=== PATIENT | male | born 1950 | race Two or more races ===

== ENCOUNTER 2019-04-12 11:19 | Emergency (ER) | payer MEDICAID ==
[~2019-04-12] VITALS: Ht 172.7 cm; Wt 81.6 kg
[2019-04-12] VITALS (9 sets, daily range): BP systolic 114–126; BP diastolic 61–72
[2019-04-12] MEDS ORDERED: Tetanus/Diptheria/Pertussis IM ONE (11:30)
--- NOTE | 2019-04-12 11:59 | NUR ---
ED Nurse Note: pt's rabi states there is a change in pt's mental status Dr. Bryant wants pt moved to a monitor bed. pt moved from rx1 to bed 2.
--- NOTE | 2019-04-12 12:08 | NUR ---
ED Nurse Note: PT. WENT DOWN TO CT
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
[2019-04-12 12:25] LABS: HEMATOCRIT 42.3 % (42.0-52.0); HEMOGLOBIN 14.7 G/DL (14.2-18.0); MEAN CORPUSCULAR VOLUME 96 FL (80-99); PLATELET COUNT 197 K/UL (150-450); RED BLOOD COUNT 4.41 M/UL (4.70-6.10); RED CELL DISTRIBUTION WIDTH 11.1 % (11.6-14.8); WHITE BLOOD COUNT 14.1 K/UL (4.8-10.8)
[2019-04-12 12:32] LABS: ANION GAP 15 mmol/L (5-15); BLOOD UREA NITROGEN 14 mg/dL (7-18); CALCIUM 8.8 MG/DL (8.5-10.1); CARBON DIOXIDE 20 MMOL/L (21-32); CHLORIDE 103 MMOL/L (98-107); CREATININE 0.7 MG/DL (0.55-1.30); SODIUM 138 MMOL/L (136-145)
--- NOTE | 2019-04-12 12:33 | NUR ---
ED Nurse Note: PT BACK FROM CT VIA MARIO.
--- NOTE | 2019-04-12 12:35 | NUR ---
ED Nurse Note: REPORT RECEIVED FROM KAITLYNN AVINA.
[2019-04-12 12:36] LABS: POTASSIUM 5.3 MMOL/L (3.5-5.1)
[2019-04-12 12:37] LABS: ALANINE AMINOTRANSFERASE 29 U/L (12-78); ALBUMIN 3.8 G/DL (3.4-5.0); ALKALINE PHOSPHATASE 65 U/L (46-116); ASPARTATE AMINO TRANSFERASE 61 U/L (15-37); BILIRUBIN,TOTAL 0.6 MG/DL (0.2-1.0)
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
--- NOTE | 2019-04-12 13:00 | NUR ---
ED Nurse Note: PT STATES HE HAS BEEN NPO SINCE LAST NIGHT AROUND 2029.
[2019-04-12] MEDS ORDERED: Isovue-300 100ml vial INJ PRN (13:15)
--- NOTE | 2019-04-12 13:25 | NUR ---
ED Nurse Note: TIME OUT CALLED FOR LEFT HIP REDUCTION WITH CONSCIOUS SEDATION. PRIMARY RN, DR CONCEPCION AND RHONDA RT AT BEDSIDE.
[2019-04-12] MEDS ORDERED: Propofol 200mg/20ml IV ONE (13:30)
--- NOTE | 2019-04-12 13:30 | NUR ---
ED Nurse Note: CONSCIOUS SEDATION STARTED. SEE INTERVENTION.
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
--- NOTE | 2019-04-12 13:35 | NUR ---
ED Nurse Note: LEFT HIP REDUCTION COMPLETED. PT TOLERATED WELL. PT AOX4.
--- NOTE | 2019-04-12 13:42 | Diagnostic Imaging Report ---
Indication: Reason For Exam: PAIN Technique: Noncontrast spiral acquisitions obtained through the pelvis/left hip Multiplanar reconstructions were generated. Total dose length product 357.54 mGycm. CTDIvol(s) 13.23 mGy. Radiation dose was minimized using automated exposure control Comparison: none Findings: There is a complex fracture/dislocation of the left hip. The femoral head is dislocated posteriorly, and impacts the posterior column of the acetabulum. There is an extensive comminuted fracture of the posterior column of the acetabulum. The largest component of the fracture is in the iliac bone directly posterior to the acetabulum and extending into the ischium. The largest fragment is located superolateral to the dislocated femoral head and is distracted a considerable distance from its origin. This fragment probably contains the posterior articular surface of the actual acetabulum. There is a sizable fracture fragment located within the acetabular fossa. Fracture also involves the superior acetabular lip and extends to the inferior acetabular lip. Most of the articular surface of the acetabulum is intact, however. There is a fat fluid level within the acetabulum, consistent with a lipohemarthrosis. A few gas bubbles are seen within the acetabular space nondependently, as well. There only minimal overlying soft tissue contusion lateral to the greater trochanter. There is thickening of the left gluteal musculature, consistent with contusion. The left femur itself appears to be intact. No other pelvic fracture demonstrated. No sacral fracture demonstrated. There are mild degenerative changes of the lumbosacral junction. The pelvic viscera are remarkable for the presence of small bilateral inguinal hernias which contain only fat. There is massive left hydroureter, which extends to the ureterovesical junction. No definite obstructive lesion is demonstrated. There is severe but slightly less massive right hydroureter, which tapers to normal caliber approximate 4 cm above the ureterovesical junction. The bladder is only mildly distended. Impression: Positive for complex fracture dislocation of the left hip. The left femoral head is dislocated posteriorly, impacts the posterior column of the acetabulum resulting in a complex, comminuted, severely displaced fracture of the posterior acetabulum and extending into the ischium. Associated lipohemarthrosis of the left hip Gas bubbles within the acetabular fossa, probably vacuum bubbles as there is no evidence of a draining trauma Minimal superficial soft tissue contusion. Thickening of the gluteal musculature presumably indicates muscular contusion. Bilateral marked hydroureter, without definite distal obstructive lesion. Significance/etiology uncertain Findings previously discussed by phone with Dr. Bryant in the emergency room The CT scanner at [facility] is accredited by the [employer] and the scans are performed using protocols designed to limit radiation exposure to as low as reasonably achievable to attain images of sufficient resolution adequate for diagnostic evaluation.
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
--- NOTE | 2019-04-12 14:00 | NUR ---
ED Nurse Note: PT ABLE TO VOID. PT REMAINS AOX4 AND DENIES NAUSEA.
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
[2019-04-12] MEDS ORDERED: Morphine Sulfate 4mg/ml Inj (IV USE ONLY) IVP ONE (15:30)
--- NOTE | 2019-04-12 16:05 | Diagnostic Imaging Report ---
Indication: Pain Technique: 2 views of the left tibia and fibula Comparison: none Findings: No definite acute fractures. No dislocations. No radiopaque foreign body demonstrated. Impression: Negative
--- NOTE | 2019-04-12 17:57 | NUR ---
ED Nurse Note: [facility] CALLED FOR PT REPORT. REPORT GIVEN TO KAITLYNN LOPES. [facility] LOPES FACILITY IS READY TO ACCEPT PT. PT AWATING TRANSPORTATION.
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
== END 2019-04-12 19:20 | disposition short-term general hospital (02) ==
LOC: EDBD 11:19 → EMR 12:05
DX: S22.068A Other fracture of T7-T8 thoracic vertebra, initial encounter for closed fracture (principal); S32.492A Other specified fracture of left acetabulum, initial encounter for closed fracture; S73.005A Unspecified dislocation of left hip, initial encounter; V23.4XXA Motorcycle driver injured in collision with car, pick-up truck or van in traffic accident, initial encounter; Y92.411 Interstate highway as the place of occurrence of the external cause
CPT/HCPCS: 27252; 36415; 70450; 72128; 72131; 73590; 73700; 74177; 80053; 85007; 85025; 85610; 85730; 90471; 90715; 96360; 99284; J2704; Q9967; Z7502

== ENCOUNTER 2020-07-08 13:33 | Emergency (ER) | payer SELFPAY ==
[~2020-07-08] VITALS: Ht 170.2 cm; Wt 77.1 kg
--- NOTE | 2020-07-08 13:54 | NUR ---
ED Nurse Note: Pt BIBA for alcohol intoxication. Pt is alert and orientedx4, ambulatory. Pt has been seen by ERMD. Pt has slurred speech. Pt states he wants to go home-DR notified. Pt denies SI, hallucinations, hearing voices.
--- NOTE | 2020-07-08 13:55 | Emergency Room Report ---
History of Present Illness General Chief Complaint: Alcohol Intoxication Source: Patient, EMS Present Illness HPI Patient brought by EMS. He has been drinking alcohol. The patient was unsteady on his feet and therefore they transported to our facility. At the time of my exam the patient is alert and reports drinking alcohol frequently. He denies intent to harm himself or others. He is not depressed. He denies seizures, head trauma, GI bleeds or bleeding complications. No fevers, chills, sore throat, chest pain, palpitations, nausea, vomiting, diarrhea, dysuria, abdominal pain, shortness of breath, joint pain, rashes, depression, anxiety, visual changes, dizziness, headache. The patient is status post traumatic injury to his left leg and wears a brace. Patient denies any major medical problems at this time. He denies taking regular medication. Allergies: Coded Allergies: No Known Allergies (Unverified , 04/12/19) UNABLE TO ASSESS (Unverified , 07/08/20) COVID-19 Screening Contact w/high risk pt: No Experienced COVID-19 symptoms?: No COVID-19 Testing performed PIZZA CHEF: No Patient History Past Medical History: see triage record Past Surgical History: other - Traumatic leg injury Social History: Reports: alcohol use Social History Narrative lives with Reviewed Nursing Documentation: PMH: Agreed; PSxH: Agreed Nursing Documentation-PMH Past Medical History: Deferred Review of Systems All Other Systems: negative except mentioned in HPI Physical Exam Vital Signs Date Time Temp Pulse Resp B/P (MAP) Pulse Ox O2 Delivery O2 Flow Rate FiO2 07/08/20 13:32 98.6 62 18 136/84 (101) 99 Room Air Sp02 EP Interpretation: reviewed, normal General Appearance: well appearing, no apparent distress, GCS 15, non-toxic Head: normocephalic, atraumatic Eyes: bilateral eye PERRL, bilateral eye Scleral Injection ENT: normal pharynx, moist mucus membranes Neck: full range of motion, supple Respiratory: lungs clear, normal breath sounds Cardiovascular #1: regular rate, rhythm Cardiovascular #2: 2+ radial (R) Gastrointestinal: normal inspection, non tender, soft Musculoskeletal: gait/station normal - With brace on left foot and elastic compression on right ankle Neurologic: alert, motor strength/tone normal, 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 At the time of my evaluation the patient is ambulatory and does not want further evaluation or treatment. He denies intent to harm himself or others. There is no evidence of head trauma or other significant comorbidities. Discussed problem of alcohol intoxication with patient. He feels this is not a problem. He states that he wants to go home to be with his . He states he lives a short distance away from the hospital and feels safe to go home. No apparent medical emergency at this time. Patient stable for outpatient observation and treatment. Last Vital Signs Date Time Temp Pulse Resp B/P (MAP) Pulse Ox O2 Delivery O2 Flow Rate FiO2 07/08/20 14:12 98.6 72 16 127/88 99 Room Air 07/08/20 13:57 100 Status: improved Disposition: HOME, SELF-CARE Condition: Improved Asa De La Fuente MD Jul 08, 2020 13:55
[2020-07-08 13:57] VITALS: BP 130/83
[2020-07-08 14:12] VITALS: BP 127/88
--- NOTE | 2020-07-08 14:13 | NUR ---
ER DISCHARGE NOTE: Patient is cleared to be discharged per ERMD, pt is aox4, on room air, with stable vital signs. pt was given dc and prescription instructions, pt was able to verbalize understanding, pt id band removed. pt is able to ambulate with steady gait. pt took all belongings. Pt provided alcohol abuse education.
== END 2020-07-08 14:13 | disposition home or self-care (01) ==
LOC: EDBD 13:33 → EMR 13:53
DX: F10.129 Alcohol abuse with intoxication, unspecified (principal)
CPT/HCPCS: 99281